=== PATIENT | female | born 1995 | race Caucasian/White ===

== ENCOUNTER 2017-10-11 21:42 | Emergency (ER) | payer OTHER ==
[2017-10-11 22:00] LABS: URINE HCG POC HCG NEGATIVE (Negative)
[2017-10-11 22:02] LABS: ADD MAN DIFF? NO
[2017-10-11 22:07] LABS: BASO % 0 % (0-3); BILIRUBIN,URINE NEGATIVE (NEG); CLARITY,URINE CLEAR; COLOR,URINE YELLOW; EOS % 0 % (0-3); GLUCOSE,URINE NEGATIVE (NEG); HEMATOCRIT 39.5 % (36.0-47.0); HEMOGLOBIN 13.6 g/dL (12.0-15.5); LYMPH # 1.8 x10^3/uL (1.0-4.8); LYMPH % 18 % (24-48); MEAN CORPUSCULAR HEMOGLOBIN 30 pg (25-35); MEAN CORPUSCULAR HGB CONC 35 g/dL (31-37); MEAN CORPUSCULAR VOLUME 87 fL (79-100); MONO # 0.8 x10^3/uL (0.0-1.1); MONO % 8 % (0-9); NEUT # 7.4 x10^3uL (1.8-7.7); NEUT % 74 % (31-73); NITRITE,URINE NEGATIVE (NEG); PH,URINE 6.5; PLATELET COUNT 304 x10^3/uL (140-400); PROTEIN,URINE 30 mg/dL (NEG-TRACE); RED BLOOD COUNT 4.54 x10^6/uL (3.50-5.40); RED CELL DISTRIBUTION WIDTH 13.4 % (11.5-14.5); UROBILINOGEN,URINE 0.2 mg/dL (0.2 mg/dL); WHITE BLOOD COUNT 10.1 x10^3/uL (4.0-11.0)
[2017-10-11 22:13] LABS: ANION GAP 9 (6-14); BLOOD UREA NITROGEN 11 mg/dL (7-20); BUN/CREATININE RATIO 11 (6-20); CALCIUM 9.2 mg/dL (8.5-10.1); CARBON DIOXIDE 27 mmol/L (21-32); CHLORIDE 103 mmol/L (98-107); GFR 68.7; GLUCOSE 97 mg/dL (70-99); POTASSIUM 3.3 mmol/L (3.5-5.1); SODIUM 139 mmol/L (136-145)
[2017-10-11 22:17] LABS: BACTERIA,URINE 0 /HPF (0-FEW); RBC,URINE >40 /HPF (0-2); SQUAMOUS EPITHELIAL CELL,UR MOD /LPF
[2017-10-11] MEDS: ONDANSETRON PF 4 MG/2 ML VIAL. IV (22:17)
[2017-10-11] MEDS: IV NORMAL SALINE 1000ML BAG 1,000 ML IV (22:17)
[2017-10-11] MEDS: fentaNYL PF VIAL 100 MCG/2 ML VIAL IV ×2 (22:17)
[2017-10-11 22:18] LABS: ALBUMIN/GLOBULIN RATIO 1.2 (1.0-1.7); ALK PHOS 64 U/L (46-116); ALT (SGPT) 15 U/L (14-59); AST (SGOT) 12 U/L (15-37); LIPASE 88 U/L (73-393); TOTAL BILIRUBIN 0.4 mg/dL (0.2-1.0); TOTAL PROTEIN 7.3 g/dL (6.4-8.2)
[2017-10-12] MEDS: KETOROLAC 30 MG/ML INJ. IV (00:14)
[2017-10-12] MEDS: TAMSULOSIN 0.4 MG CAP.ER.24H. PO (00:14)
== END 2017-10-12 00:27 | disposition home or self-care (01) ==
LOC: ER 10-12 00:27
DX: N20.1 Calculus of ureter (principal); F32.9 Major depressive disorder, single episode, unspecified; F17.210 Nicotine dependence, cigarettes, uncomplicated; Z96.22 Myringotomy tube(s) status; Z88.8 Allergy status to other drugs, medicaments and biological substances
CPT/HCPCS: 36415; 74176; 80053; 81001; 81025; 83690; 85025; 96361; 96374; 96375; 99285-25; J1885; J2405; J3010; J7030